=== PATIENT | male | born 1995 | race Caucasian/White ===

== ENCOUNTER 2020-12-17 14:30 | Emergency (ER) | payer OTHER ==
[~2020-12-17] VITALS: Ht 160 cm; Wt 55.0 kg
--- NOTE | 2020-12-17 16:55 | REP ---
INDICATION: FALL COMPARISON: None. TECHNIQUE: Axial noncontrast images from the skull base to the vertex with coronal reformations. This CT examination was performed using the following dose reduction techniques: Automated exposure control, adjustment of mA and/or kv according to the patient's size, and use of iterative reconstruction technique. FINDINGS: The ventricles, sulci, and cisterns are normal in position and appearance. Aragon-white differentiation is maintained. No acute intracranial hemorrhage, mass/mass effect, pathology or trauma/injury. No evidence for acute infarction. No extra-axial fluid collection. Calvarium is intact. Paranasal sinuses and mastoid air cells are clear. IMPRESSION: Normal noncontrast head CT. No evidence for acute intracranial pathology or trauma/injury. <Electronically signed by Ricci Avery > 12/17/20 [id number]
--- NOTE | 2020-12-17 16:56 | REP ---
INDICATION: FALL COMPARISON: None. TECHNIQUE: Axial noncontrast images from the skull base to the thoracic inlet with coronal and sagittal re-formations This CT examination was performed using the following dose reduction techniques: Automated exposure control, adjustment of mA and/or kv according to the patient's size, and use of iterative reconstruction technique. FINDINGS: Normal alignment and lordosis is maintained. Cervical vertebral bodies including transverse processes and spinous processes are intact and there is no evidence for acute fracture / compression injury or subluxation. Spinal canal is patent. Posterior elements are intact. Paravertebral soft tissues are normal. IMPRESSION: Normal noncontrast cervical spine CT. No evidence for acute pathology or trauma/injury. <Electronically signed by Ricci Avery > 12/17/20 [id number]
[2020-12-17 17:19] LABS: BASO # 0.1 10^3/uL (0.0-0.2); BASO % 0.8 % (0.0-1.0); EOS # 0.1 10^3/uL (0.0-0.5); EOS % 1.5 % (0.0-3.0); HEMATOCRIT 41.9 % (42.0-52.0); HEMOGLOBIN 14.1 g/dl (13.5-17.5); LYMPH # 1.9 10^3/uL (1.5-5.0); LYMPH % 30.5 % (24.0-44.0); MEAN CORPUSCULAR HEMOGLOBIN 29.4 pg (27.0-33.0); MEAN CORPUSCULAR HGB CONC 33.7 g/dl (32.0-36.5); MEAN CORPUSCULAR VOLUME 87.5 fl (80.0-96.0); MONO # 0.4 10^3/uL (0.0-0.8); MONO % 7.1 % (2.0-8.0); NEUTROPHILS # 3.7 10^3/uL (1.5-8.5); NEUTROPHILS % 59.9 % (36.0-66.0); PLATELET COUNT, AUTOMATED 200 10^3/uL (150-450); RED BLOOD COUNT 4.79 10^6/uL (4.30-6.10); WHITE BLOOD COUNT 6.2 10^3/uL (4.0-10.0)
[2020-12-17] MEDS ORDERED: DERMABOND TOPICAL SKIN ADHESIVE TOP ONE (18:05)
[2020-12-17] MEDS ORDERED: DOXYCYCLINE HYCLATE 100MG TABLET PO ONE (18:10)
[2020-12-17] MEDS ORDERED: ACETAMINOPHEN 325 MG TAB PO ONE (18:15)
[2020-12-17] MEDS ORDERED: ONDANSETRON 4 MG TAB PO ONE (18:20)
[2020-12-17] MEDS ORDERED: ZOFR4TAB16 PO (18:21)
[2020-12-17 18:27] VITALS: BP 137/71
--- NOTE | 2020-12-18 08:28 | ECGEPIP ---
[facility] - ED Test Date: 2020-12-17 Pat Name: FABIOLA RAMESH Department: Room: - Gender: Male [employer] Preparer: BALDEMAR : 1995 Requested By: MAHENDRA Flood PA-C Order Number: [id number] Reading MD: Hussein Desai Measurements Intervals [place] Rate: 61 P: 43 RI: 138 QRS: 59 QRSD: 82 T: 51 QT: 398 QTc: 400 Interpretive Statements Normal sinus rhythm with sinus arrhythmia NO PRIORS FOR COMPARISON Electronically Signed on 12-18-2020 8:28:34 EDT by Hussein Desai
== END 2020-12-17 18:48 | disposition home or self-care (01) ==
LOC: M ED 14:30
DX: S01.01XA Laceration without foreign body of scalp, initial encounter (principal); S06.0X1A Concussion with loss of consciousness of 30 minutes or less, initial encounter; W10.9XXA Fall (on) (from) unspecified stairs and steps, initial encounter; S80.852A Superficial foreign body, left lower leg, initial encounter; Y92.89 Other specified places as the place of occurrence of the external cause; Y93.9 Activity, unspecified; Y99.1 Military activity; W57.XXXA Bitten or stung by nonvenomous insect and other nonvenomous arthropods, initial encounter; R55 Syncope and collapse; Z88.2 Allergy status to sulfonamides